=== PATIENT | male | born 1955 | race Caucasian/White ===

== ENCOUNTER 2022-01-03 10:41 | Outpatient (CLI) | payer BC, SELFPAY ==
[2022-01-03 13:15] LABS: Albumin* 4.1 g/dL (3.3-5.0); Chloride* 100 mmol/L (96-114); Potassium* 4.4 mmol/L (3.6-5.1); Sodium* 135 mmol/L (135-149)
[2022-01-03 13:17] LABS: Bilirubin Total* 0.8 mg/dL (0.1-1.5); Carbon Dioxide* 29 mmol/L (20-32); Cholesterol* 169 mg/dL (90-199); Creatinine* 1.1 mg/dL (0.5-1.5); Estimated Glomerular Filt Rate 75 ml/min; Total Protein* 6.7 g/dL (6.0-8.3)
[2022-01-03 13:18] LABS: Alanine Aminotransferase* 30 U/L (4-50); Alkaline Phosphatase* 77 U/L (40-150); Aspartate Amino Transferase* 35 U/L (12-35); Blood Urea Nitrogen* 17 mg/dL (7-30); Calcium* 9.1 mg/dL (8.4-10.6); Glucose* 102 mg/dL (60-115); HDL Cholesterol* 51 mg/dL (>=40); LDL Cholesterol Calculated 105 mg/dL (<100); Triglycerides* 63 mg/dL (40-149)
[2022-01-03 13:38] LABS: PSA Screen* 0.81 ng/mL (0.10-4.00)
== END 2022-01-03 10:42 | disposition home or self-care (01) ==
PROVIDERS: PCP Internal Medicine; Visit Provider Internal Medicine
DX: Z00.00 Encounter for general adult medical examination without abnormal findings (principal); I10 Essential (primary) hypertension; Z13.6 Encounter for screening for cardiovascular disorders; Z12.5 Encounter for screening for malignant neoplasm of prostate
CPT/HCPCS: 80053; 80061; 84153

== ENCOUNTER 2023-01-03 07:50 | Outpatient (CLI) | payer BC, SELFPAY | END 2023-01-03 07:51 | disposition home or self-care (01) | LOC: NFLDREF 23:46 | PROVIDERS: PCP Internal Medicine; Referring Provider Internal Medicine; Visit Provider Internal Medicine | DX: Z00.00 Encounter for general adult medical examination without abnormal findings (principal); I10 Essential (primary) hypertension; Z12.5 Encounter for screening for malignant neoplasm of prostate; Z13.6 Encounter for screening for cardiovascular disorders | CPT/HCPCS: 80053; 80061; 84153 ==

== ENCOUNTER 2023-02-01 11:02 | Outpatient (CLI) | payer MEDICARE, BC, SELFPAY | END 2023-02-01 11:03 | disposition home or self-care (01) | LOC: RAD 11:06 | PROVIDERS: PCP Internal Medicine; Visit Provider Internal Medicine | DX: I77.810 Thoracic aortic ectasia (principal); I51.7 Cardiomegaly | CPT/HCPCS: 93306 ==

== ENCOUNTER 2024-01-14 08:27 | Day surgery (SDC) | payer MEDICARE, BC, SELFPAY ==
[2024-01-14] VITALS (10 sets, daily range): BP systolic 113–136; BP diastolic 71–94; PULSE 53–64; RESP 12–22; TEMP 36.1–36.2; O2SAT 95–98; BMI 26.9
--- OUTSIDE RECORDS SUMMARY | 2024-01-14 08:34 | XMS_ITS | Clinical Summary ---
Author Organization [facility] Address [address] [place] [address] Care Team Providers Care Director Marketing Name Role Phone Unavailable Primary Care Provider Unavailabl e Source Comments Patient records contain information from all sites at [facility]. For routine questions regarding patient records, call [phone] during business hours, M-F 8:00 AM - 5:00 PM Central Time. Record requests for emergency care only can be directed to [phone] at any time.[facility] Allergies No known active allergies Medications Medication Sig Dispensed Refills Start Date End Date Status acetaminophen (TYLENOL) 500 mg tablet Take by mouth every 6 (six) hours as needed. pain 08/16/2017 Active ibuprofen (ADVIL,MOTRIN) 200 mg tablet Take by mouth every 6 (six) hours as needed. pain 08/16/2017 Active aspirin 81 mg chewable tablet Chew 81 mg daily. Active lisinopriL (PRINIVIL,ZESTRIL) 20 mg tablet Take 20 mg by mouth daily. 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 Immunizations Name Administration Dates Next Due HepA Adult 03/20/2012 Influenza Split 04/03/2017,04/03/2012 Influenza high dose QV(65 years or older) (PF) 1 PCV20 10/19/2021 RZV (SHINGRIX) 08/11/2021,05/17/2021 SARS-COV-2 (COVID-19) - PFIZ ER (Discontinued)(12 years or older) 03/02/2021 SARS-COV-2 (COVID-19) - PFIZ ER BIVALENT TS(Discontinued)(12 YEARS OR OLDER) 04/10/2022 SARS-COV-2 (COVID-19) - PFIZ ER TS(Discontinued)(12 years or older) 10/19/2021 Td Preservative Free (TENIVAC, DECAVAC) 07/24/19 18 Tdap 05/17/2021,08/10/2005 influenza vaccine quad (FLUZ ONE/FLUARIX) (6 months and older)(PF) 03/15/2020,04/07/2019 Social History Tobacco Use Types Packs/Day Years Used Date Smoking Tobacco: Never Smokeless Tobacco: Never Social Connection and Isolat ion Panel [NHANES] Answer Date Recorded In a typical week, how many times do you talk on the phone with family, friends, or neighbors? Twice a week 02/17/2021 How often do you get togethe r with friends or relatives? Twice a week 02/17/2021 How often do you attend chur or pentecostalism services? More than 4 times per year 02/17/2021 Do you belong to any clubs o r organizations such as religious groups, unions, fraternal or athletic groups, or school groups? Yes 02/17/2021 How often do you attend meet ings of the clubs or organizations you belong to? More than 4 times per year 02/17/2021 Are you , , di vorced, , never , or living with a partner? 02/17/2021 AUDIT-C Answer Date Recorded Q1: How often do you have a drink containing alcohol? 4 or more times a week 02/17/2021 Q2: How many drinks containi ng alcohol do you have on a typical day when you are drinking? 1 or 2 Q3: How often do you have si x or more drinks on one occasion? Never 02/17/2021 Overall Financial Resource Strain (CARDIA) Answe r Date Recorded How hard is it for you to pa y for the very basics like food, housing, medical care, and heating? Not hard at all 02/17/2021 [facility] - Occupational Stress Questionnaire Answer Date Recorded Do you feel stress - tense, restless, nervous, or anxious, or unable to sleep at night because your mind is troubled all the time - these days? Not at all 02/17/2021 Exercise Vital Sign Answer Date Recorde d On average, how many days pe r week do you engage in moderate to strenuous exercise (like a brisk walk)? 5 days 02/17/2021 On average, how many minutes do you engage in exercise at this level? 30 min 02/17/2021 Hunger Vital Sign Answer Date Recorded Within the past 12 months, y ou worried that your food would run out before you got the money to buy more. Never true 02/18/20 21 Within the past 12 months, t he food you bought just didn't last and you didn't have money to get more. Never true 02/17/2021 PRAPARE - Transportation Answer Date Re corded In the past 12 months, has l ack of transportation kept you from medical appointments or from getting medications? No 02/01 In the past 12 months, has l ack of transportation kept you from meetings, work, or from getting things needed for daily living? No 02/17/2021 Housing Stability Vital Sign Answer Harsh e Recorded In the last 12 months, was t here a time when you were not able to pay the mortgage or rent on time? No 02/17/2021 In the last 12 months, how many places have you lived? 1 02/17/2021 In the last 12 months, was t here a time when you did not have a steady place to sleep or slept in a snf (including now)? No 02/17/2021 Nutrition Answer Date Recorded Nutrition: EVOO Fat Source No 02/17 On average, how many serving s of fruits and vegetables do you eat per day (serving size is equal to 1 cup or approximately the size of a tennis ball)? 2-3 02/17/2021 Dental Answer Date Recorded Dental: Regular Dentist Yes 06/02/20 Employment Answer Date Recorded Employment status Employed and actively working without restrictions 02/17/2021 Education Answer Date Recorded What is the highest level of school you have completed or the highest degree you have received? Professional school degree (e.g., MD, DDS, DVM, AYLIN) 12/08/2018 Sex and Gender Information Value Date Recorded Sex Assigned at Male 11/22/2017 1:17 PM CDT Gender Identity Male 11/22/2017 1:17 PM CDT Sexual Orientation Straight 11/22/2017 1: 17 PM CDT Last Filed Vital Signs Vital Sign Reading Time Taken Comments Blood Pressure 159/82 06/12/2022 10:50 AM DOOR REPAIRMAN Pulse 82 06/12/2022 10:50 AM DOOR REPAIRMAN Temperature 34.1 ??C (93.4 ??F) 10/19/2021 8 :21 AM CDT Respiratory Rate 16 08/20/2017 11:1 7 AM CDT Value from Chartplus. Oxygen Saturation - - Inhaled Oxygen Concentration - - Weight 90.7 kg (200 lb) 04/04/2020 9:42 AM DOOR REPAIRMAN Height 188 cm (6' 2) 04/04/2020 9:42 AM DOOR REPAIRMAN Body Mass Index 25.68 04/04/2020 9:42 AM DOOR REPAIRMAN Plan of Treatment Health Maintenance Due Date Last Done Comments CT Colonography 1955 Cologuard 1955 FIT 1955 Hepatitis C Screening 1955 Creatinine Level (Kidney Fun ction Test) 07/24/2018 07/24/2017, 05/19/2012 Potassium Level 07/24/2018 07/24/2017, 05/19/2012 Sodium Level 07/24/2018 07/24/2017, 05/19/2012 Fasting Glucose for Diabetes Screening 07/24/2020 07/24/2017, 05/19/2012 COVID-19 Vaccine (7 - 2022-2 4 season) 2023 03/06/2023, 04/10/2022, 10/19/2021, Additional history exists Depression Screening (Annual PHQ-2) 06/03/2023 Fall Risk Screen (Annual) 06/03/2023 Influenza Vaccine (#1) 2024 , 03/15/2020, 04/07/2019, Additional history exists Colonoscopy 07/25/2027 07/25/2017, 06/2012 (Performed elsewhere), 08/05/2006 Colorectal Cancer Screening 07/25/2027 DTaP,Tdap,and Td Vaccines (4 - Td or Tdap) 05/17/2031 05/17/2021, 07/24/2017, 08/10/2005 Zoster Vaccines Completed 08/11/2021, 05/17/2021 Pneumococcal vaccine (65+ years) Completed 10/20/19 Medical Devices Implanted Type Area Rn Pain Management Device Identifier Shelf Expiration Date Model / Serial / Lot Mesh Prolene 6 X 6 Pmm - [place] [id number] Implanted:Qty: 1 on 10/08/2006 Mesh or Patch Ethicon Description:Device Manufactu rer - Ethi[employer]PACE. Device Status Text - [id number]. [facility] Data - [id number]. Procedures Procedure Name Priority Date/Time Associated Diagnosis Comments COLONOSCOPY Routine 07/25/2017 12:39 PM DOOR REPAIRMAN GLUCOSE, FASTING, S/P Routine 07/24/2017 9:31 AM DOOR REPAIRMAN SODIUM, S/P Routine 07/24/2017 9:31 AM DOOR REPAIRMAN POTASSIUM, S/P Routine 07/24/2017 9:31 AM DOOR REPAIRMAN CREATININE WITH EGFR, S/P Routine 07/24/2017 9:31 AM DOOR REPAIRMAN from Last 3 Months or Most Recently Relevant to Health Maintenance Results * Colonoscopy (07/25/2017 12:39 PM DOOR REPAIRMAN) 07/25/2017 12:3 9 PM DOOR REPAIRMAN Eleazar Rodrigez M.D. GI PROCEDURE NAHOMY ARROYO HX CHAFFEE CONVERSION * Sodium (07/24/2017 9:31 AM DOOR REPAIRMAN) Sodium, S 143 135 - 145 MMOL/L [facility] 07/24/2017 9:31 AM DOOR REPAIRMAN 07/24/2017 9:31 AM DOOR REPAIRMAN Narrative Authorizing Provider Result Deandre Rodrigez M.D. LAB BLOOD ADD-ON [facility] [address] * Potassium (07/24/2017 9:31 AM DOOR REPAIRMAN) Potassium, S 4.7 3.6 - 5.2 MMOL/L [facility] 07/24/2017 9:31 AM DOOR REPAIRMAN 07/24/2017 9:31 AM DOOR REPAIRMAN Narrative Authorizing Provider Result Deandre Rodrigez M.D. LAB BLOOD ADD-ON Performing Organization Address City/[facility]/ZIP Co de Phone Number [facility] [address] * (ABNORMAL) Glucose, Fasting (07/24/2017 9:31 AM DOOR REPAIRMAN) Pathologist [facility] Last Intake 13 HR [facility] Glucose, P 111(H) 70 - 100 MG/DL [facility] 07/24/2017 9:31 AM DOOR REPAIRMAN 07/24/2017 9:31 AM DOOR REPAIRMAN Narrative Authorizing Provider Result Deandre Rodrigez M.D. LAB BLOOD NON ADD -ON [facility] [address] * Creatinine with Estimated GFR (MDRD) (07/24/2017 9:31 AM DOOR REPAIRMAN) Creatinine 1.1 0.8 - 1.3 MG/DL [facility] eGFR Non-Black/Afric an Citizen Of [place] >60 >60 ML/MIN/BSA [facility] eGFR-Black/Afri can Citizen Of [place] >60 >60 ML/MIN/BSA [facility] 07/24/2017 9:31 AM DOOR REPAIRMAN 07/24/2017 9:31 AM DOOR REPAIRMAN Eleazar Rodrigez M.D. LAB BLOOD ADD-ON [facility] [address] [place] [address], [facility] from Last 3 Months or Most Recently Relevant to Health Maintenance Advance Directives For more information, please contact: [phone] Documents on File Type Date Recorded Patient Shaker Out Expl anation Advance Directives 07/24/2017 12:00 AM Leg acy document. See document viewer.
--- OUTSIDE RECORDS SUMMARY | 2024-01-14 08:34 | XMS_ITS | Referral Summary ---
Author Organization [facility] Address [address] [place] [address] Care Team Providers Care Target Trimmer Name Role Phone Unavailable Primary Care Provider Unavailabl e Source Comments Patient records contain information from all sites at [facility]. For routine questions regarding patient records, call [phone] during business hours, M-F 8:00 AM - 5:00 PM Central Time. Record requests for emergency care only can be directed to [phone] at any time.[facility] Allergies No known active allergies Medications Medication [...] 50 mL inj As needed 06/12/2022 Active yzleuaxnbdi-ptqtxawaw-MOSBWYF rine 0.25%-1%-1:200,000 injection 2-25 mLIndications:Cancer Skin Squamous [...] How often do you attend chur or jewish services? More than 4 times per year 02/17/2021 Do you belong to any clubs o r organizations such as restorationism groups, unions, fraternal or athletic groups, or [...] and heating? Not hard at all 02/17/2021 [facility] - [...] place to sleep or slept in a mcfp (including now)? No 02/17/2021 Nutrition Answer Date [...] Comments Blood Pressure 159/82 06/12/2022 10:50 AM AUTO FLEET MAINTENANCE MANAGER Pulse 82 06/12/2022 10:50 AM AUTO FLEET MAINTENANCE MANAGER Temperature 34.1 ??C (93.4 ??F) 10/19/2021 8 :21 AM CDT Respiratory Rate 16 08/20/2017 11:1 7 AM CDT Value from Chartplus. Oxygen Saturation - - Inhaled Oxygen Concentration - - Weight 90.7 kg (200 lb) 04/04/2020 9:42 AM AUTO FLEET MAINTENANCE MANAGER Height 188 cm (6' 2) 04/04/2020 9:42 AM AUTO FLEET MAINTENANCE MANAGER Body Mass Index 25.68 04/04/2020 9:42 AM AUTO FLEET MAINTENANCE MANAGER Plan of Treatment Not on file Medical Devices Implanted Type Area Locomotive Mechanic Device Identifier Shelf Expiration Date Model / Serial / Lot Mesh Prolene 6 X 6 [facility] [place] [id number] Implanted:Qty: 1 on 10/08/2006 Mesh or Patch Ethicon Description:Device Manufactu rer - Ethicon. Device Status Text - [id number]. [facility] Data - [id number]. Procedures Procedure Name Priority Date/Time Associated Diagnosis Comments COLONOSCOPY Routine 07/25/2017 12:39 PM AUTO FLEET MAINTENANCE MANAGER GLUCOSE, FASTING, S/P Routine 07/24/2017 9:31 AM AUTO FLEET MAINTENANCE MANAGER SODIUM, S/P Routine 07/24/2017 9:31 AM AUTO FLEET MAINTENANCE MANAGER POTASSIUM, S/P Routine 07/24/2017 9:31 AM AUTO FLEET MAINTENANCE MANAGER CREATININE WITH EGFR, S/P Routine 07/24/2017 9:31 AM AUTO FLEET MAINTENANCE MANAGER from Last 3 Months or Most Recently Relevant to Health Maintenance Results * Colonoscopy (07/25/2017 12:39 PM AUTO FLEET MAINTENANCE MANAGER) 07/25/2017 12:3 9 PM AUTO FLEET MAINTENANCE MANAGER Eleazar Rodrigez M.D. GI PROCEDURE ORDE RABLES HX MARISA CONVERSION * Sodium (07/24/2017 9:31 AM AUTO FLEET MAINTENANCE MANAGER) Sodium, S 143 135 - 145 MMOL/L [facility] 07/24/2017 9:31 AM AUTO FLEET MAINTENANCE MANAGER 07/24/2017 9:31 AM AUTO FLEET MAINTENANCE MANAGER Eleazar Rodrigez M.D. LAB BLOOD ADD-ON Performing Organization Address City/[facility]/ZIP Co de Phone Number [facility] [address] * Potassium (07/24/2017 9:31 AM AUTO FLEET MAINTENANCE MANAGER) Potassium, S 4.7 3.6 - 5.2 MMOL/L [facility] 07/24/2017 9:31 AM AUTO FLEET MAINTENANCE MANAGER 07/24/2017 9:31 AM AUTO FLEET MAINTENANCE MANAGER Eleazar Rodrigez M.D. LAB BLOOD ADD-ON Performing Organization Address [facility]/ZIP Co de Phone Number [facility] [address] * (ABNORMAL) Glucose, Fasting (07/24/2017 9:31 AM AUTO FLEET MAINTENANCE MANAGER) Last Intake 13 HR [facility] Glucose, P 111(H) 70 - 100 MG/DL [facility] 07/24/2017 9:31 AM AUTO FLEET MAINTENANCE MANAGER 07/24/2017 9:31 AM AUTO FLEET MAINTENANCE MANAGER Eleazar Rodrigez M.D. LAB BLOOD NON ADD -ON [facility] [address] * Creatinine with Estimated GFR (MDRD) (07/24/2017 9:31 AM AUTO FLEET MAINTENANCE MANAGER) Creatinine 1.1 0.8 - 1.3 MG/DL [facility] eGFR Non-Black/Afric an Swiss >60 >60 ML/MIN/BSA [facility] eGFR-Black/Afri can Swiss >60 >60 ML/MIN/BSA [facility] 07/24/2017 9:31 AM AUTO FLEET MAINTENANCE MANAGER 07/24/2017 9:31 AM AUTO FLEET MAINTENANCE MANAGER Eleazar Rodrigez M.D. LAB BLOOD ADD-ON Performing Organization Address City/[facility] Co de Phone Number [facility] [address] from Last 3 Months or Most Recently Relevant to Health Maintenance Advance Directives For more information, please contact: [phone] Documents on File Type Date Recorded Patient Pit Furnace Operator Expl anation Advance Directives 07/24/2017 12:00 AM Leg acy document. See document viewer.
--- OUTSIDE RECORDS SUMMARY | 2024-01-14 08:34 | XMS_ITS ---
Author Organization [facility] Address [address] [place] [address] Care Team Providers Care Chemical Treatment Plant Technician Name Role Phone Unavailable Unavailable Unavailable Surgery Details Not on file Complications Check Surgery Details section. Procedure Estimated Blood Loss Check Surgery Details section. Procedure Findings Check Surgery Details section. Procedure Specimens Taken Check Surgery Details section.
[2024-01-14] MEDS: SODIUM CHLORIDE 0.9 % (FLUSH) 10 ML SYRINGE IVF (09:35)
[2024-01-14] MEDS: LACTATED RINGERS 1000 ML 1,000 ML 100 ML IV ×2 (09:35→12:02)
[2024-01-14] MEDS: CEFAZOLIN 2 GM INJ IVP (10:58)
--- NOTE | 2024-01-14 11:27 | SUR.OPER ---
SURGEON DECLINES OFFER TO SEND EXCISED TISSUE TO PATHOLOGY.
--- NOTE | 2024-01-14 11:38 | PM.ORPRC ---
Procedure Note Date of procedure: 01/14/24 Procedure: PREOPERATIVE DIAGNOSIS: Right knee aseptic prepatellar bursitis POSTOPERATIVE DIAGNOSIS: Right knee aseptic prepatellar bursitis NAME OF OPERATION: Right knee prepatellar bursectomy SURGEON: Chao Sutherland MD FITNESS CONSULTANT: JUNIOR Page ANESTHESIA: Spinal ESTIMATED BLOOD LOSS: 0 mL COMPLICATIONS: None SPECIMENS: Sent for gross and microscopic pathology, labeled right knee prepatellar bursa DRAINS: None PREOPERATIVE ANTIBIOTICS: Ancef 2 grams INDICATIONS: The patient is a 68-year-old with a history of aseptic right knee prepatellar bursitis Despite appropriate nonoperative management the mass persists. Operative intervention was offered. The risks, benefits and expected outcomes were discussed in detail. These included but were not limited to: Infection, bleeding, injury to blood vessel or nerve, venous thromboembolism. All questions were answered to their satisfaction. Use of an certified physical therapist assistant was necessary throughout the case for patient positioning and safety, soft tissue retraction, and closure. PROCEDURE: Spinal anesthesia was administered. The patient was placed supine on the operating table. The certified physical therapist assistant made sure the patient was positioned appropriately. The lower extremity was prepped and draped in the usual sterile fashion. The limb was exsanguinated with the Edgar bandage. The pneumatic tourniquet was inflated to 300 mmHg. A standard anterior incision was made with the knee in flexion, centered over the prepatellar bursa and patella. Subcutaneous dissection was sharply taken to the bursa. The bursa was then sharply excised off of subcu fat superficially and off of the patella deep. It was excised en bloc and taken to the back table. It measures 5 cm x 7 cm x 8 cm. It was opened longitudinally in the kidney basin. It was full of brown, semi solid material, consistent with old blood. The certified physical therapist assistant irrigated the wound with normal saline via bulb syringe. The certified physical therapist assistant closed the space with a 2-0 Vicryl. The certified physical therapist assistant closed the subcutaneous tissues with a 3-0 Stratafix and the skin with a running 3-0 Stratafix in a subcuticular fashion. The subcu and skin were infiltrated with 0.5% Marcaine, without epinephrine. Glue was used to seal the skin. The certified physical therapist assistant placed a dry dressing and knee immobilizer. Sponge and needle counts were correct x2. The patient tolerated the procedure well. There were no apparent complications. They were carefully transferred to the hospital bed and taken to the postanesthesia care unit in satisfactory condition. PLAN: The patient will be discharged home. He may weightbear as tolerates. We will limit his range of motion for 2 weeks. He will follow-up in the office in 1-2 weeks for wound check.
--- NOTE | 2024-01-14 11:39 | SUR.OPER ---
SURGEON CHANGED HIS MIND AND IS SENDING THE EXCISED TISSUE TO PATHOLOGY.
[2024-01-14] MEDS: BUPIVACAINE 0.5% 30 ML INJECTION (11:57)
--- NOTE | 2024-01-14 12:24 | W.ANESCHARGE ---
Anesthesia Charges Start Date/Time Anesthesia Start Date: 01/14/24 Anesthesia Start Time: 10:47 Stop Date/Time Anesthesia Stop Date: 01/14/24 Anesthesia Stop Time: 12:23
--- NOTE | 2024-01-14 12:39 | W.ANESCHARGE ---
Anesthesia Charges Start Date/Time Anesthesia Start Date: 01/14/24 Anesthesia Start Time: 10:47 Stop Date/Time Anesthesia Stop Date: 01/14/24 Anesthesia Stop Time: 12:23
== END 2024-01-14 13:57 | disposition home or self-care (01) ==
LOC: OR 08:29
PROVIDERS: PCP Internal Medicine; Visit Provider Orthopaedic Surgery
PROC: (CPT 27340; principal; 2024-01-14 10:45)
DX: M70.41 Prepatellar bursitis, right knee (principal)
CPT/HCPCS: 27340; 01320; 88304; J0665; J0690; J1100; J2250; J2371; J2405; J2704; J3010; J7120

== ENCOUNTER 2024-02-04 07:33 | Outpatient (CLI) | payer MEDICARE, BC, SELFPAY ==
--- OUTSIDE RECORDS SUMMARY | 2024-02-05 07:34 | XMS_ITS | Referral Summary ---
Author Organization [facility] Address [address] [place] [id number] Care Team Providers Care Washer Cutter Name Role Phone Unavailable Primary Care Provider Unavailabl e Source Comments Patient records contain information from all sites at [facility]. For routine questions regarding patient records, call [phone] during business hours, M-F 8:00 AM - 5:00 PM Central Time. Record requests for emergency care only can be directed to [phone] at any time.[facility] Allergies No known active allergies Medications [...] 50 mL inj As needed 06/12/2022 Active qdodklxqlig-kesrrarvd-VUQGOOZ rine 0.25%-1%-1:200,000 injection 2-25 mLIndications:Cancer Skin Squamous [...] How often do you attend chur or orthodoxy services? More than 4 times per year 02/17/2021 Do you belong to any clubs o r organizations such as evangelical groups, unions, fraternal or athletic groups, or [...] and heating? Not hard at all 02/17/2021 [facility] Occupat [facility] Health - Occupational Stress [...] place to sleep or slept in a detention (including now)? No 02/17/2021 Nutrition Answer Date [...] Comments Blood Pressure 159/82 06/12/2022 10:50 AM WEIGH AND CHARGE WORKER Pulse 82 06/12/2022 10:50 AM WEIGH AND CHARGE WORKER Temperature 34.1 ??C (93.4 ??F) 10/19/2021 8 :21 AM CDT Respiratory Rate 16 08/20/2017 11:1 7 AM CDT Value from [employer]. Oxygen Saturation - - Inhaled Oxygen Concentration - - Weight 90.7 kg (200 lb) 04/04/2020 9:42 AM WEIGH AND CHARGE WORKER Height 188 cm (6' 2) 04/04/2020 9:42 AM WEIGH AND CHARGE WORKER Body Mass Index 25.68 04/04/2020 9:42 AM WEIGH AND CHARGE WORKER Plan of Treatment Not on file Medical Devices Implanted Type Area Professor Of Medicine Device Identifier Shelf Expiration Date Model / Serial / Lot Mesh Prolene 6 X 6 [facility] [place] [id number] Implanted:Qty: 1 on 10/08/2006 Mesh or Patch Ethicon Description:Device Manufactu rer - Ethicon. Device Status Text - [id number]. [facility] Data - [id number]. Procedures Procedure Name Priority Date/Time Associated Diagnosis Comments COLONOSCOPY Routine 07/25/2017 12:39 PM WEIGH AND CHARGE WORKER GLUCOSE, FASTING, S/P Routine 07/24/2017 9:31 AM WEIGH AND CHARGE WORKER SODIUM, S/P Routine 07/24/2017 9:31 AM WEIGH AND CHARGE WORKER POTASSIUM, S/P Routine 07/24/2017 9:31 AM WEIGH AND CHARGE WORKER CREATININE WITH EGFR, S/P Routine 07/24/2017 9:31 AM WEIGH AND CHARGE WORKER from Last 3 Months or Most Recently Relevant to Health Maintenance Results * Colonoscopy (07/25/2017 12:39 PM WEIGH AND CHARGE WORKER) 07/25/2017 12:3 9 PM WEIGH AND CHARGE WORKER Eleazar Rodrigez M.D. GI PROCEDURE ORDE RABLES HX MARISA CONVERSION * Sodium (07/24/2017 9:31 AM WEIGH AND CHARGE WORKER) Sodium, S 143 135 - 145 MMOL/L [facility] 07/24/2017 9:31 AM WEIGH AND CHARGE WORKER 07/24/2017 9:31 AM WEIGH AND CHARGE WORKER Eleazar Rodrigez M.D. LAB BLOOD ADD-ON Performing Organization Address City/[facility]/ZIP Co de Phone Number [facility] [address] * Potassium (07/24/2017 9:31 AM WEIGH AND CHARGE WORKER) Potassium, S 4.7 3.6 - 5.2 MMOL/L [facility] 07/24/2017 9:31 AM WEIGH AND CHARGE WORKER 07/24/2017 9:31 AM WEIGH AND CHARGE WORKER Eleazar Rodrigez M.D. LAB BLOOD ADD-ON Performing Organization Address [facility]/ZIP Co de Phone Number [facility] [address] * (ABNORMAL) Glucose, Fasting (07/24/2017 9:31 AM WEIGH AND CHARGE WORKER) Last Intake 13 HR [facility] Glucose, P 111(H) 70 - 100 MG/DL [facility] 07/24/2017 9:31 AM WEIGH AND CHARGE WORKER 07/24/2017 9:31 AM WEIGH AND CHARGE WORKER Eleazar Rodrigez M.D. LAB BLOOD NON ADD -ON [facility] [address] * Creatinine with Estimated GFR (MDRD) (07/24/2017 9:31 AM WEIGH AND CHARGE WORKER) Creatinine 1.1 0.8 - 1.3 MG/DL [facility] eGFR Non-Black/Afric an Barbadian >60 >60 ML/MIN/BSA [facility] eGFR-Black/Afri can Barbadian >60 >60 ML/MIN/BSA [facility] 07/24/2017 9:31 AM WEIGH AND CHARGE WORKER 07/24/2017 9:31 AM WEIGH AND CHARGE WORKER Eleazar Rodrigez M.D. LAB BLOOD ADD-ON Performing Organization Address City/[facility] Co de Phone Number [facility] [address] from Last 3 Months or Most Recently Relevant to Health Maintenance Advance Directives For more information, please contact: [phone] Documents on File Type Date Recorded Patient Counter Weigher Expl anation Advance Directives 07/24/2017 12:00 AM Leg acy document. See document viewer.
--- OUTSIDE RECORDS SUMMARY | 2024-02-05 07:34 | XMS_ITS ---
Author Organization [facility] Address [address] [place] [address] Care Team Providers Care Release Of Information Clerk Name Role Phone Unavailable Unavailable Unavailable Surgery Details Not on file Complications Check Surgery Details section. Procedure Estimated Blood Loss Check Surgery Details section. Procedure Findings Check Surgery Details section. Procedure Specimens Taken Check Surgery Details section.
--- OUTSIDE RECORDS SUMMARY | 2024-02-05 07:34 | XMS_ITS | Clinical Summary ---
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 For routine questions regarding patient records, call [phone] during business hours, M-F 8:00 AM - 5:00 PM Central Time. Record requests for emergency care only can be directed to [phone] at any time.[facility] Allergies No known active allergies Medications [...] 50 mL inj As needed 06/12/2022 Active vtemfmchvsm-vtxpeqtrc-UTNWKRF rine 0.25%-1%-1:200,000 injection 2-25 mLIndications:Cancer Skin Squamous [...] How often do you attend chur or evangelical services? More than 4 times per year 02/17/2021 Do you belong to any clubs o r organizations such as orthodoxy groups, unions, fraternal or athletic groups, or [...] and heating? Not hard at all 02/17/2021 [facility] - Occupational [...] place to sleep or slept in a longterm (including now)? No 02/17/2021 Nutrition Answer Date [...] Comments Blood Pressure 159/82 06/12/2022 10:50 AM GENERAL II [employer] Pulse 82 06/12/2022 10:50 AM GENERAL II [employer] Temperature 34.1 ??C (93.4 ??F) 10/19/2021 8 :21 AM CDT Respiratory Rate 16 08/20/2017 11:1 7 AM CDT Value from [employer]. 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 Device Status Text - [id number]. [facility] Data - [id number]. 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 LAB BLOOD NON ADD -ON [facility] [address] * Creatinine with Estimated GFR (MDRD) (07/24/2017 9:31 AM GENERAL II [employer]ARMWORKER) Creatinine 1.1 0.8 - 1.3 MG/DL [facility] eGFR Non-Black/Afric an Bruneian >60 >60 ML/MIN/BSA [facility] eGFR-Black/Afri can Bruneian >60 >60 ML/MIN/BSA [facility] 07/24/2017 9:31 AM GENERAL II [employer] 07/24/2017 9:31 AM GENERAL II [employer]ER Eleazar Rodrigez M.D. LAB BLOOD ADD-ON [facility] [address] [place] [address], [facility] from Last 3 Months or Most Recently Relevant to Health Maintenance Advance Directives For more information, please contact: [phone] Documents on File Type Date Recorded Patient Vest Busheler Expl anation Advance Directives 07/24/2017 12:00 AM Leg acy document. See document viewer.
== END 2024-02-04 07:34 | disposition home or self-care (01) ==
LOC: NFLDREF 02-05 07:32
PROVIDERS: PCP Internal Medicine; Referring Provider Internal Medicine; Visit Provider Internal Medicine
DX: E78.5 Hyperlipidemia, unspecified (principal); I10 Essential (primary) hypertension; Z12.5 Encounter for screening for malignant neoplasm of prostate
CPT/HCPCS: 80053; 80061; G0103

== ENCOUNTER 2025-03-24 07:29 | Outpatient (CLI) | payer MEDICARE, BC, SELFPAY | END 2025-03-24 07:30 | disposition home or self-care (01) | LOC: NFLDREF 03-27 15:53 | PROVIDERS: PCP Internal Medicine; Referring Provider Internal Medicine; Visit Provider Internal Medicine | DX: E78.5 Hyperlipidemia, unspecified (principal); I10 Essential (primary) hypertension; Z12.5 Encounter for screening for malignant neoplasm of prostate | CPT/HCPCS: 80053; 80061; G0103 ==

== ENCOUNTER 2025-04-14 08:48 | Outpatient (CLI) | payer MEDICARE, BC, SELFPAY | END 2025-04-14 08:49 | disposition home or self-care (01) | LOC: RAD 08:49 | PROVIDERS: PCP Internal Medicine; Visit Provider Internal Medicine | DX: I77.810 Thoracic aortic ectasia (principal) | CPT/HCPCS: 93308; 93321; 93325 ==